=== PATIENT | male | born 1990 | race Hispanic/Latino ===

== ENCOUNTER 2018-09-16 00:31 | Emergency (ER) | payer OTHER ==
[2018-09-16] MEDS ORDERED: CYCLOBENZAPRINE HCL 10 MG TABLET ONE (01:13)
== END 2018-09-16 01:18 | disposition home or self-care (01) ==
LOC: EDH 00:31
DX: M62.838 Other muscle spasm (principal); R51 Headache; I10 Essential (primary) hypertension; Z79.899 Other long term (current) drug therapy; Z72.0 Tobacco use